=== PATIENT | female | born 2000 | race Caucasian/White ===

== ENCOUNTER 2022-01-11 10:04 | Outpatient (CLI) | payer OTHER ==
--- NOTE | 2022-01-12 13:49 | MRI Report ---
PROCEDURE: SHOULDER WO - LT INDICATIONS: LEFT SHOULDER PAIN TECHNIQUE: Noncontrast oblique coronal T2 fast spin echo with fat saturation, oblique sagittal T1 spin echo and T2 fast spin echo with fat saturation, axial T1 spin echo and T2 fast spin echo with fat saturation t hrough the shoulder. COMPARISON: None. FINDINGS: Image quality: Excellent. Rotator cuff: The supraspinatus, infraspinatus, and subscapularis tendons appear intact throughout. No rotator cuff muscle atrophy on sagittal images. Bones and bursae: No bone marrow contusions or fractures. No acromioclavicular joint degeneration. The acromion demonstrates conventional anatomy, without an os acromiale. No pathologic subacromial/ subdeltoid bursal fluid is present. Capsule and soft tissues: In the absence of intra-articular contrast, the labrum and glenohumeral li gaments appear intact. The long head of the biceps tendon demonstrates normal location and morpholog y. The rotator interval appears normal, without fibrosis. The coracohumeral ligament is normal in t hickness. IMPRESSION: No explanation for shoulder pain. No rotator cuff tear. Reviewed by: Dewayne Castorena MD on 01/12/2022 1:48 PM PST Approved by: Dewayne Castorena MD on 01/12/2022 1:48 PM PST Station ID: [id number]
== END 2022-01-11 10:05 | disposition home or self-care (01) ==
LOC: DI 10:04
DX: M25.512 Pain in left shoulder (principal)

== ENCOUNTER 2022-01-18 01:41 | Emergency (ER) | payer OTHER ==
[2022-01-18] MEDS ORDERED: IBUPROFEN 800 MG TABLET PO ONE (01:54)
[2022-01-18] MEDS ORDERED: IBUPROFEN 800 MG TABLET PO STA (01:56)
--- NOTE | 2022-01-18 02:32 | ED Physician Documentation ---
History of Present Illness - Stated complaint Stated Complaint: FEVER,COUGH,JOINT PX - Chief complaint Chief Complaint: Resp - History obtained from History obtained from: Patient - History of Present Illness Timing: Yesterday Improved by: no ameliorating factors Worsened by: no exacerbating factors - Additonal information Additional information: c/o fever Tmax 103, generalized myalgias, moist cough, sore throat, generalized headache. Symptoms started yesterday. Review of Systems Constitutional: reports: Fever, Chills, Myalgias, Fatigue, Sweats Respiratory: reports: Cough. denies: Dyspnea Neurologic: reports: Headache PD PAST MEDICAL HISTORY - Past Medical History Past Medical History: No - Past Surgical History Past Surgical History: Yes HEENT: Other - Present Medications Home Medications: Ambulatory Orders Medication Instructions Recorded Confirmed Meloxicam [Mobic] 15 mg PO DAILY 01/18/22 01/18/22 - Allergies Allergies/Adverse Reactions: Allergies Allergy/AdvReac Type Severity Reaction Status Date / Time No Known Drug Allergies Allergy Verified 01/18/22 01:54 - Social History Does the pt smoke?: No Smoking Status: Never smoker Does the pt drink ETOH?: No Does the pt have substance abuse?: No - Immunizations Immunizations are current?: No Immunizations: Other immun not current - POLST Patient has POLST: No PD ED PE NORMAL - Vitals Vital signs reviewed: Yes - General General: Alert and oriented X 3, No acute distress, Well developed/nourished - HEENT HEENT: Moist mucous membranes - Neck Neck: Supple, no meningeal sign - Cardiac Cardiac: RRR, No murmur - Respiratory Respiratory: No respiratory distress, Clear bilaterally Results - Vitals Vitals: Vital Signs - 24 hr 01/18/22 01/18/22 01:49 04:07 Temperature 38.9 C H 37.7 C Heart Rate 125 H 87 Respiratory 18 18 Rate Blood Pressure 131/69 H 130/76 O2 Saturation 97 99 Oxygen O2 Source Room air - Labs Labs: Laboratory Tests 01/18/22 01:48 Nasal Adenovirus (PCR) NOT DETECTED Nasal B. parapertussis DNA (PCR) NOT DETECTED Nasal Coronavir 229E PCR NOT DETECTED Nasal Coronavir HKU1 PCR NOT DETECTED Nasal Coronavir NL63 PCR NOT DETECTED Nasal Coronavir OC43 PCR NOT DETECTED Nasal Enterovir/Rhinovir PCR NOT DETECTED Nasal Influenza B PCR NOT DETECTED Nasal Influenza A PCR NOT DETECTED Nasal Parainfluen 1 PCR NOT DETECTED Nasal Parainfluen 2 PCR NOT DETECTED Nasal Parainfluen 3 PCR NOT DETECTED Nasal Parainfluen 4 PCR NOT DETECTED Nasal RSV (PCR) NOT DETECTED Nasal B.pertussis DNA PCR NOT DETECTED Nasal C.pneumoniae (PCR) NOT DETECTED Liam Human Metapneumo PCR NOT DETECTED Nasal M.pneumoniae (PCR) NOT DETECTED Nasal SARS-CoV-2 (PCR) DETECTED A PD MEDICAL DECISION MAKING - ED course Complexity details: reviewed results, re-evaluated patient, considered denise galeas, d/w patient ED course: respiratory PCR panel positive for [id number], negative for other viruses tested. Discussed options for treatment, specifically Paxlovid. Patient's BMI is risk factor for progression to severe symptoms and thus Paxlovid recommended. Patient agrees and Paxlovid kit is given Departure - Departure Disposition: 01 Home, Self Care Clinical Impression: COVID-19 Condition: Good Instructions: ED Viral Syndrome Follow-Up: LIAM Patterson [Provider Group] Comments: You have tested positive for SARS-COV-19 (COVID 19). You meet one of the CDC ris k factors for severe COVID-19 (body mass index over 25), and thus you are being provided with antiviral medications to lower the likelihood of progression to severe symptoms. The medication can sometimes shorten the course of the illness as well. The anti-viral medications are being provided as a kit which contains the medications as well as instructions on dosing. You should go to the CDC website for further information. Google "CDC isolation" and then click on the link to "Isolation and Precautions for People with COVID- 19 - [facility]". This will have useful information for you as well as household contacts. There is a calculator on the page that will determine when you can end isolation. I have provided a work note excusing you from work until the 10th , but you might need to isolate for a longer period depending on your symptoms. If you need more time off from work, you can contact your primary care provider to discuss this. Forms: Activity restrictions Discharge Date/Time: 01/18/22 04:07
[2022-01-18 02:44] LABS: B. PARAPERTUSSIS- RESP PCR PAN NOT DETECTED; B. PERTUSSIS- RESP PCR PANEL NOT DETECTED; C. PNEUMONIAE- RESP PCR PANEL NOT DETECTED; CORONAVIRUS 229E-RESP PCR NOT DETECTED; CORONAVIRUS HKU1-RESP PCR NOT DETECTED; CORONAVIRUS NL63-RESP PCR NOT DETECTED; CORONAVIRUS OC43-RESP PCR NOT DETECTED; HUMAN METAPNEUMOVIRUS NOT DETECTED; INFLUENZA A- RESP PCR PANEL NOT DETECTED; INFLUENZA B - RESP PCR PANEL NOT DETECTED; M. PNEUMONIAE- RESP PCR PANEL NOT DETECTED; PARAINFLUENZA VIRUS 1 NOT DETECTED; PARAINFLUENZA VIRUS 2 NOT DETECTED; PARAINFLUENZA VIRUS 3 NOT DETECTED; PARAINFLUENZA VIRUS 4 NOT DETECTED; RHINOVIRUS/ENTEROVIRUS NOT DETECTED; RSV- RESP PCR PANEL NOT DETECTED
[2022-01-18 02:47] LABS: SARS-CoV-2 -RESP PCR PANEL DETECTED
[2022-01-18] MEDS ORDERED: NIRMATRELVIR/RITONAVIR PREPACK PO STA (03:45)
[2022-01-18 04:08] VITALS: BP 130/76
== END 2022-01-18 04:07 | disposition home or self-care (01) ==
LOC: ED 01:41
DX: U07.1 COVID-19 (principal)
CPT/HCPCS: 87633; 99282; 99283; A9270; J3490

== ENCOUNTER 2022-10-03 15:25 | Emergency (ER) | payer OTHER ==
[2022-10-03 15:34] VITALS: BP 137/79; O2SAT 98
--- NOTE | 2022-10-03 15:47 | ED Physician Documentation ---
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 The next day she was just sore but since yesterday has had significant pain in the right foot. It is on the bottom of the foot and over the lateral side. There is no specific injury otherwise. Pressing on the brake pedal hurts the most. She has been taking naproxen without relief. PD PAST MEDICAL HISTORY - Past Surgical History Past Surgical History: Yes HEENT: Other - Present Medications Home Medications: Ambulatory Orders Medication Instructions Recorded Confirmed Naproxen 500 mg PO BID PRN 10/03/22 10/03/22 - Allergies Allergies/Adverse Reactions: Allergies Allergy/AdvReac Type Severity Reaction Status Date / Time No Known Drug Allergies Allergy Verified 10/03/22 15:30 - Social History Does the pt smoke?: No Smoking Status: Never smoker Does the pt drink ETOH?: No Does the pt have substance abuse?: No - Immunizations Immunizations are current?: No Immunizations: Other immun not current - POLST Patient has POLST: No PD ED PE NORMAL - Vitals Vital signs reviewed: Yes - General General: Alert and oriented X 3, No acute distress - Extremities Extremities: Other (Right foot appears grossly normal without warmth redness or discoloration. Normal perfusion. I am not able to specifically find any area of tenderness, flexion extension of the great toe is slightly painful but when I do that the pain is over by the lateral malleolus.) - Neuro Neuro: Alert and oriented X 3 Results - Vitals Vitals: Vital Signs - 24 hr 10/03/22 15:30 Temperature 36.5 C Heart Rate 85 Respiratory 16 Rate Blood Pressure 137/79 H O2 Saturation 98 Oxygen O2 Source Room air - Rads (name of study) Three-view x-ray of right foot is unremarkable Relevant Findings:: Final report received, EMP independent interpretation of test PD Medical Decision Making - ED course ED course: 22-year-old woman with right foot injury. Unable to elicit any tenderness. It is not consistent with a planter fasciitis. X-rays were negative. It did start after PRT so presume sort of an overuse injury. Departure - Departure Disposition: Home, Self Care Clinical Impression: Right foot pain Condition: Good Record reviewed to determine appropriate education?: Yes Comments: X-ray looking normal, you can take 1 hydrocodone every 6 hours for pain. Do not drink or drive with it. [place] few [place]. Continue Aleve/naproxen. Forms: Activity restrictions Discharge Date/Time: 10/03/22 16:18
[2022-10-03] MEDS ORDERED: HYDROcod/ACET 5/325 Prepack 4 PO STA (16:02)
--- NOTE | 2022-10-03 16:16 | XRAY Report ---
PROCEDURE: Foot 3 View RT INDICATIONS: foot pain TECHNIQUE: 3 views of the foot were acquired. COMPARISON: None. FINDINGS: Bones: No fractures or dislocations. No suspicious bony lesions. Soft tissues: No suspicious soft tissue calcifications or masses. IMPRESSION: Unremarkable right foot radiographs Reviewed by: Marito Lockett MD on 10/03/2022 3:14 PM AKDT Approved by: Marito Lockett MD on 10/03/2022 3:14 PM AKDT Station ID: [id number]
== END 2022-10-03 16:18 | disposition home or self-care (01) ==
LOC: ED 15:25
DX: M79.671 Pain in right foot (principal)
CPT/HCPCS: 99283